=== PATIENT | female | born 1970 | race Caucasian/White ===

== ENCOUNTER 2019-06-09 06:25 | Day surgery (SDC) | payer OTHER ==
[2019-06-08 16:35] LABS: Absolute Lymphocytes (CBC) 1.6 K/uL (0.7-4.9); Basophils % 0.9 % (0-1.3); Hematocrit 42.3 % (36.0-45.0); Lymphocytes % 16.4 % (15.3-44.8); MPV 9.7 fL (7.6-11.3); RBC Red Blood Cell Count 4.48 M/uL (3.86-4.86)
[2019-06-09] MEDS ORDERED: Ringers Lactate 1,000 ML IV ONE (06:38)
[2019-06-09] MEDS ORDERED: NA CHLORIDE 0.9% 1,000 ML ONE (07:12)
[2019-06-09] MEDS ORDERED: PROPOFOL 200 MG/20 ML VIAL IV ONE (07:21)
[2019-06-09] MEDS ORDERED: LIDOCAINE 2% MPF 5 ML VIAL ONE (07:21)
[2019-06-09] MEDS ORDERED: MIDAZOLAM HCL 2 MG/2 ML INJ ONE ×2 (07:21→07:48)
[2019-06-09] MEDS ORDERED: FENTANYL CITR 100 MCG/2 ML ONE (07:21)
[2019-06-09] MEDS ORDERED: ONDANSETRON 4 MG/2 ML VIAL ONE (07:23)
[2019-06-09] MEDS: LIDOCAINE 1% W/EPI 1:100,000 MDV 20 ML VIAL ONE ×2 (07:25→07:48)
[2019-06-09] MEDS ORDERED: KETOROLAC 30 MG/ML INJ ONE (07:42)
[2019-06-09 08:14] VITALS: TEMP 98.1; O2SAT 99
[2019-06-09 09:23] VITALS: BP 107/56
--- NOTE | 2019-06-09 19:58 | OP ---
Surgeon: Sharon Mnesah MD Preoperative Diagnosis: Abnormal uterine bleeding, ovulatory dysfunction most likely. Postoperative Diagnosis: Abnormal uterine bleeding, ovulatory. Procedure Performed: Hysteroscopy D and C. Anesthesia: MAC plus paracervical block. Specimens: Endometrial curettings. Complications: No complications. Drains: No drains. Conditions: Stable. Findings: Posterior wall at the fundus endometrium thickened . No intracavitary lesions w ere seen. Indication: The patient is a 48-year-old with regular periods timely until very recently, started to have heavy prolonged bleeding. Evaluated with transvaginal ultrasound, endometrium despite the 2 we eks of bleeding was 1.3 cm. No other abnormalities were found and cavity visualization sampling for ruling out atypia or malignancy were discussed. procedure, benefits, risks were reviewed including . If there was a polyp present, further polypectomy, appropriate instruments wou ld be available at the same time, so that it could all be done in one procedure. She was consented a nd then brought to the hospital. Patient has been on Prometrium and her bleeding has slowed down and stabilized over the last 1 week. Description Of Procedure: After informed consent was verified, she was taken back to OR placed in taveras pine fashion on the operating table. MAC was given, patient placed in dorsal lithotomy. Pelvic exam was performed. Uterus anteflexed slightly enlarged. No adnexal masses were noted and uterus comple tely mobile. No nodularity in the cul-de-sac. Speculum placed to expose the cervix. Prep x3 with B etadine was done and anterior lip injected with 1% lidocaine mixed with 1:100, 1000 epinephrine and 8 cc here, and then 6 cc on the 4 and 8 o'clock positions of the cervicovaginal junction for a paracer vical block. Two Allis were placed in the anterior lip and diagnostic SlimLine hysteroscope used to traverse the cervical canal under direct visualization of the uterine cavity. Cavity was empty. Pos terior wall and fundal endometrium thickened and erythematous. Both tubal ostia well visualized. No intracavitary masses. Scope removed. Endometrial curettings performed with a #1 curette, adequatel y targeting the posterior and fundal gallegos mostly. Optimal curetting was performed, then the angle o f sampling and decreasing the bleeding for this patient. All the instruments were removed. Specimen handed out for permanent pathology. Instrument, needle, and sponge counts were done and were correc t at the end of the case. The patient tolerated the procedure well. She will follow up with me in 1 week for pathology results. [email or web address] Voice ID: [id number] Report ID: [id number]
== END 2019-06-09 09:05 | disposition home or self-care (01) ==
LOC: OR 06:25
PROVIDERS: ATTEND Obstetrics & Gynecology
PROC: 0UJD8ZZ Inspection of Uterus and Cervix, Via Natural or Artificial Opening Endoscopic (ICD-10-PCS; 2019-06-09)
PROC: 0UDB7ZX Extraction of Endometrium, Via Natural or Artificial Opening, Diagnostic (ICD-10-PCS; principal; 2019-06-09 07:30)
DX: N92.1 Excessive and frequent menstruation with irregular cycle (principal); N94.6 Dysmenorrhea, unspecified; N71.1 Chronic inflammatory disease of uterus; Z82.49 Family history of ischemic heart disease and other diseases of the circulatory system; Z80.42 Family history of malignant neoplasm of prostate
CPT/HCPCS: 85025; 36415; 81025; 88305; 84443; 83001; 58558; J2704; J2250 ×2; J3010; J7030; J2405